=== PATIENT | male | born 1965 | race Caucasian/White ===

== ENCOUNTER 2024-02-19 13:52 | Inpatient (IN) | payer OTHER ==
[2024-02-19 14:36] VITALS: BMI 30.1
[2024-02-19] MEDS ORDERED: NALOXONE HCL 0.4 MG/ML VIAL IM PRN (17:12)
[2024-02-19] MEDS ORDERED: POLYETHYLENE GLYCOL (HEALTHYLAX) 3350 17 GM PACKET PO PRN (17:12)
[2024-02-19] MEDS ORDERED: guaiFENesin 600 MG TABLET.ER (FP) PO PRN (17:12)
[2024-02-19] MEDS ORDERED: BENZONATATE 200 MG CAPSULE PO PRN (17:12)
[2024-02-19] MEDS ORDERED: DICYCLOMINE HCL 10 MG CAPSULE PO PRN (17:12)
[2024-02-19] MEDS ORDERED: BENZOCAINE/MENTHOL (CHLORASEPTIC ) LOZENGE MM PRN (17:12)
[2024-02-19] MEDS ORDERED: MAG HYDROX/AL HYDROX/SIMETH 30 ML UNIT-DOSE CUP PO PRN (17:12)
[2024-02-19] MEDS ORDERED: NALOXONE (NARCAN) HCL 4 MG/0.1 ML SPRAY NS PRN (17:12)
[2024-02-19] MEDS ORDERED: LOPERAMIDE HCL 2 MG CAPSULE PO PRN (17:12)
[2024-02-19] MEDS ORDERED: IBUPROFEN 400 MG TABLET (FP) PO PRN (17:12)
[2024-02-19] MEDS ORDERED: BISMUTH SUBSALICYLATE 524 MG/30 ML PO PRN (17:12)
[2024-02-19] MEDS ORDERED: IBUPROFEN 600 MG TABLET (FP) PO ONE (18:03)
[2024-02-19] MEDS: IBUPROFEN 600 MG TABLET (FP) PO PRN (18:05)
[2024-02-19] MEDS: ONDANSETRON *ODT* 4 MG TABLET SL PRN (18:51)
[2024-02-19] MEDS: hydrOXYzine PAMOATE 25 MG CAPSULE (FP) PO PRN (19:35)
[2024-02-19] MEDS: diazePAM 5 MG TABLET PO PRN (19:36)
[2024-02-19] MEDS: THIAMINE 100 MG TABLET PO SCH (22:08)
[2024-02-19] MEDS: MELATONIN 5 MG TABLETS PO SCH (22:08)
[2024-02-19] MEDS: METHOCARBAMOL 500 MG TABLET PO PRN (22:09)
[2024-02-19] MEDS: diazePAM 5 MG TABLET PO SCH (22:09)
[2024-02-20] MEDS: PRENATAL VITAMINS W/ FOLIC ACID TABLET (FP) PO SCH (10:22)
[2024-02-20] MEDS: ACETAMINOPHEN 325 MG TABLET (FP) PO PRN (10:25)
[2024-02-20] MEDS: PANTOPRAZOLE 20 MG TABLET PO SCH (12:58)
[2024-02-20] MEDS: METOPROLOL TARTRATE 50 MG TABLET (FP) PO SCH (12:58)
[2024-02-20] MEDS: LOSARTAN POTASSIUM 50 MG TABLET PO SCH (12:58)
[2024-02-20] MEDS: MAGNESIUM HYDROX 2400MG/30ML ORAL SUSPENSION 30 ML CUP PO PRN (18:40)
[2024-02-20] MEDS: traZODone HCL 100 MG TABLET (FP) PO SCH (22:14)
[2024-02-21] MEDS: diazePAM 5 MG TABLET PO SCH (06:01)
[2024-02-21] MEDS: ESCITALOPRAM OXALATE 10 MG TABLET PO SCH (09:55)
[2024-02-21] MEDS ORDERED: PATIENT'S OWN MEDICATION (NON-FORMULARY) (Escitalopram Oxalate [Lexapro -] 5 MG Tablet) PO SCH (10:00)
[2024-02-22] MEDS: diazePAM 5 MG TABLET PO SCH (06:17)
[2024-02-23] MEDS: diazePAM 5 MG TABLET PO ONE (05:28)
[2024-02-23 09:06] VITALS: BP 148/90; PULSE 75; RESP 16; TEMP 97.7
== END 2024-02-23 10:54 | disposition home or self-care (01) | DRG 897 ==
LOC: YASAS 13:52 → Y3N 18:20
PROVIDERS: ADMIT Allergy & Immunology; ATTEND Allergy & Immunology
PROC: HZ2ZZZZ Detoxification Services for Substance Abuse Treatment (ICD-10-PCS; principal; 2024-02-19)
DX: F10.230 Alcohol dependence with withdrawal, uncomplicated (principal); I10 Essential (primary) hypertension; K21.9 Gastro-esophageal reflux disease without esophagitis; Z87.891 Personal history of nicotine dependence; Z91.85 Personal history of military service
CPT/HCPCS: 80305; 80307; 93005; 93010; Q0162